=== PATIENT | female | born 1965 | race Caucasian/White ===

== ENCOUNTER 2016-06-01 14:25 | Emergency (ER) | payer MEDICAID ==
[~2016-06-01] VITALS: Ht 177.8 cm; Wt 75.0 kg
[~2016-06-01 14:25] MED LIST: ALBU1AER INH; BENZ100 PO; CELE40TA PO; DOXY100T PO; IBUP800T23 PO; METH500T3 PO; PRED20 PO
[2016-06-01 14:36] VITALS: BP 149/89; PULSE 81; RESP 18; TEMP 98.7; O2SAT 99
[2016-06-01] MEDS ORDERED: ALBUAER3 INH (14:47)
[2016-06-01] MEDS ORDERED: CITA40TA4 PO (14:47)
[2016-06-01] MEDS ORDERED: LIDOCAINE VISCOUS 2% SOLN 15 ML UDC PO ONE (15:15)
[2016-06-01] MEDS ORDERED: FAMOTIDINE 20 MG/2 ML VIAL IV PUSH ONE (15:15)
[2016-06-01] MEDS ORDERED: ALUMINUM/MAGNESIUM/SIMETH 30 ML CUP PO ONE (15:15)
[2016-06-01] MEDS ORDERED: SODIUM CHLORIDE 0.9% FLUSH 5 ML FLUSH IVF PRN (15:15)
[2016-06-01] MEDS ORDERED: ONDANSETRON HCL 4 MG/2 ML VIAL IVP ONE (15:15)
--- NOTE | 2016-06-01 15:18 | PD ---
HPI Chief Complaint: Pain: Acute or Chronic Time Seen by Provider: 14:51 Travel History International Travel<30 days: No Contact w/Intl Traveler<30days: No Traveled to known affect area: No History of Present Illness HPI Patient is a 50-year-old female who presents to emergency room with complaints of abdominal pain. Patient reports that for the past few months, she has had pain to her upper abdomen and ribs. Patient reports that over the past few days , she has been having increased pain to her upper abdomen - reports that the pain radiates to her back and down her legs. Reports that pain is has gotten progressively worse over the past few days. Reports that she did have ribs for dinner last night which "made everything worse." Reports that she has been feeling nauseous and has been vomiting, reports that she vomited some streaks of blood yesterday. Patient denies any diarrhea. Patient reports that she does drink alcohol, does not drink alcohol daily. Patient denies chest pain or shortness of breath. She reports that she was evaluated in this emergency room 2 months ago for similar symptoms and was told that she had a rib contusion and was subsequently discharged to home. Patient denies fevers or chills. Patient with no recent travels. PFSH Past Medical History Anxiety: Yes Depression: Yes Heart Rhythm Problems: Yes ("sometimes feels like butterfly in my chest") Cardiovascular Problems: Yes High Cholesterol: No COPD: Yes Diabetes: No Diminished Hearing: No Musculoskeletal: Yes (rsd) Respiratory: Yes Immunizations Current: Yes Tetanus Vaccination: < 5 Years Influenza Vaccination: No ?: Not Past Surgical History Abdominal Surgery: Yes (csection) Gynecologic Surgery: Yes (part hyst ) Hysterectomy: Yes (PARTIAL) Social History Alcohol Use: Yes Tobacco Use: Yes (05/06 PPD) Substance Use: No Allergies-Medications (Allergen,Severity, Reaction): Coded Allergies: Morphine (Verified Allergy, Severe, Anaphylaxis, 06/01/16) Vicodin (Verified Allergy, Unknown, 06/01/16) Codeine (Verified Adverse Reaction, Severe, 06/01/16) Reported Meds & Prescriptions Reported Meds & Active Scripts Active Reported Citalopram (Citalopram Hydrobromide) 40 Mg Tab 40 Mg PO DAILY Proair Hfa 8.5 GM Inh (Albuterol Sulfate) 90 Mcg/Act Aer 2 Puff INH Q4-6H PRN 108 mcg/actuation Review of Systems General / Constitutional: No: Fever Eyes: No: Visual changes HENT: No: Headaches Cardiovascular: No: Chest Pain or Discomfort, Palpitations, Irregular Rhythm, Tachycardia, Diaphoresis Respiratory: No: Cough, Shortness of Breath Gastrointestinal: Positive: Nausea, Vomiting, Abdominal Pain, Hematemesis, No : Hematochezia, Constipation Genitourinary: No: Dysuria Musculoskeletal: No: Pain Skin: No Rash Neurologic: No: Weakness Psychiatric: No: Depression Endocrine: No: Polydipsia Hematologic/Lymphatic: No: Easy Bruising Physical Exam Narrative GENERAL: No acute distress, nontoxic SKIN: Warm and dry. HEAD: Atraumatic. Normocephalic. ENT: No nasal bleeding or discharge. Mucous membranes pink and moist. NECK: Trachea midline. No JVD. CARDIOVASCULAR: Regular rate and rhythm. No murmur appreciated. RESPIRATORY: No accessory muscle use. Clear to auscultation. Breath sounds equal bilaterally. GASTROINTESTINAL: Abdomen soft, increased tenderness to the upper abdomen with guarding on exam, nondistended. MUSCULOSKELETAL: No obvious deformities. No clubbing. No cyanosis. No edema. NEUROLOGICAL: Awake and alert. No obvious cranial nerve deficits. Motor grossly within normal limits. Normal speech. PSYCHIATRIC: Patient anxious on exam Data Data Last Documented VS Vital Signs Date Time Temp Pulse Resp B/P Pulse Ox O2 Delivery O2 Flow Rate FiO2 06/01/16 15:34 98 06/01/16 14:43 82 18 06/01/16 14:36 98.7 149/89 Orders Complete Blood Count With Diff (06/01/16 15:07) Comprehensive Metabolic Panel (06/01/16 15:07) Lipase (06/01/16 15:07) Prothrombin Time / Inr (Pt) (06/01/16 15:07) Act Partial Throm Time (Ptt) (06/01/16 15:07) Urinalysis - C+S If Indicated (06/01/16 15:07) Iv Access Insert/Monitor (06/01/16 15:07) Oximetry (06/01/16 15:07) Ondansetron Inj (Zofran Inj) (06/01/16 15:15) Sodium Chlor 0.9% 1000 Ml Inj (Ns 1000 M (06/01/16 15:07) Sodium Chloride 0.9% Flush (Ns Flush) (06/01/16 15:15) Chest, Single Ap (06/01/16 15:07) Famotidine Inj (Pepcid Inj) (06/01/16 15:15) Al-Mag Hy-Si 40-40-4 Mg/Ml Liq (Mag-Al P (06/01/16 15:15) Lidocaine 2% Viscous (Xylocaine 2% Visco (06/01/16 15:15) Ed Urine Pregnancytest Poc (06/01/16 15:07) Cta Thor Abd Aorta W Iv C W3d (06/01/16 15:07) Electrocardiogram (06/01/16 ) Iohexol 350 Inj (Omnipaque 350 Inj) (06/01/16 16:52) Hydromorphone Pf Inj (Dilaudid Pf Inj) (06/01/16 17:15) Labs Laboratory Tests Test 06/01/16 06/01/16 15:15 15:23 White Blood Count 9.2 TH/MM3 Red Blood Count 4.84 MIL/MM3 Hemoglobin 15.7 GM/DL Hematocrit 43.7 % Mean Corpuscular Volume 90.3 FL Mean Corpuscular Hemoglobin 32.4 PG Mean Corpuscular Hemoglobin 35.9 % Concent Red Cell Distribution Width 12.1 % Platelet Count 225 TH/MM3 Mean Platelet Volume 9.1 FL Neutrophils (%) (Auto) 65.2 % Lymphocytes (%) (Auto) 25.5 % Monocytes (%) (Auto) 8.1 % Eosinophils (%) (Auto) 0.6 % Basophils (%) (Auto) 0.6 % Neutrophils # (Auto) 6.0 TH/MM3 Lymphocytes # (Auto) 2.3 TH/MM3 Monocytes # (Auto) 0.7 TH/MM3 Eosinophils # (Auto) 0.1 TH/MM3 Basophils # (Auto) 0.1 TH/MM3 CBC Comment DIFF FINAL Differential Comment Prothrombin Time 11.0 SEC Prothromb Time International 1.0 RATIO Ratio Activated Partial 27.4 SEC Thromboplast Time Sodium Level 140 MEQ/L Potassium Level 4.0 MEQ/L Chloride Level 106 MEQ/L Carbon Dioxide Level 26.8 MEQ/L Anion Gap 7 MEQ/L Blood Urea Nitrogen 17 MG/DL Creatinine 0.87 MG/DL Estimat Glomerular Filtration 69 ML/MIN Rate Random Glucose 96 MG/DL Calcium Level 9.0 MG/DL Total Bilirubin 0.4 MG/DL Aspartate Amino Transf 14 U/L (AST/SGOT) Alanine Aminotransferase 21 U/L (ALT/SGPT) Alkaline Phosphatase 76 U/L Total Protein 7.4 GM/DL Albumin 4.0 GM/DL Lipase 101 U/L Urine Color YELLOW Urine Turbidity HAZY Urine pH 5.0 Urine Specific [place] 1.026 Urine Protein NEG mg/dL Urine Glucose (UA) NEG mg/dL Urine Ketones NEG mg/dL Urine Occult Blood MOD Urine Nitrite NEG Urine Bilirubin NEG Urine Urobilinogen LESS THAN 2.0 MG/DL Urine Leukocyte Esterase LARGE Urine RBC 17 /hpf Urine WBC 1 /hpf Urine Squamous Epithelial 8 /hpf Cells Urine Bacteria RARE /hpf Urine Mucus FEW /lpf Microscopic Urinalysis Comment CULT NOT INDICATED MDM Medical Decision Making Medical Screen Exam Complete: Yes Emergency Medical Condition: Yes Interpretation(s) EKG at 1546, NSR at 67bpm, qt/qtc: 418/434, incomplete rbbb, no change from previous ekg (compared to ekg from 01/16/16) Vital Signs Date Time Temp Pulse Resp B/P Pulse Ox O2 Delivery O2 Flow Rate FiO2 06/01/16 14:43 82 18 06/01/16 14:36 98.7 81 18 149/89 99 Laboratory Tests Test 06/01/16 06/01/16 15:15 15:23 White Blood Count 9.2 TH/MM3 (4.0-11.0) Red Blood Count 4.84 MIL/MM3 (4.00-5.30) Hemoglobin 15.7 GM/DL (11.6-15.3) Hematocrit 43.7 % (35.0-46.0) Mean Corpuscular Volume 90.3 FL (80.0-100.0) Mean Corpuscular Hemoglobin 32.4 PG (27.0-34.0) Mean Corpuscular Hemoglobin 35.9 % Concent (32.0-36.0) Red Cell Distribution Width 12.1 % (11.6-17.2) Platelet Count 225 TH/MM3 (150-450) Mean Platelet Volume 9.1 FL (7.0-11.0) Neutrophils (%) (Auto) 65.2 % (16.0-70.0) Lymphocytes (%) (Auto) 25.5 % (9.0-44.0) Monocytes (%) (Auto) 8.1 % (0.0-8.0) Eosinophils (%) (Auto) 0.6 % (0.0-4.0) Basophils (%) (Auto) 0.6 % (0.0-2.0) Neutrophils # (Auto) 6.0 TH/MM3 (1.8-7.7) Lymphocytes # (Auto) 2.3 TH/MM3 (1.0-4.8) Monocytes # (Auto) 0.7 TH/MM3 (0-0.9) Eosinophils # (Auto) 0.1 TH/MM3 (0-0.4) Basophils # (Auto) 0.1 TH/MM3 (0-0.2) CBC Comment DIFF FINAL Differential Comment Prothrombin Time 11.0 SEC (9.8-11.6) Prothromb Time International 1.0 RATIO Ratio Activated Partial 27.4 SEC Thromboplast Time (24.3-30.1) Sodium Level 140 MEQ/L (136-145) Potassium Level 4.0 MEQ/L (3.5-5.1) Chloride Level 106 MEQ/L (98-107) Carbon Dioxide Level 26.8 MEQ/L (21.0-32.0) Anion Gap 7 MEQ/L (5-15) Blood Urea Nitrogen 17 MG/DL (7-18) Creatinine 0.87 MG/DL (0.50-1.00) Estimat Glomerular Filtration 69 ML/MIN (>89) Rate Random Glucose 96 MG/DL (74-106) Calcium Level 9.0 MG/DL (8.5-10.1) Total Bilirubin 0.4 MG/DL (0.2-1.0) Aspartate Amino Transf 14 U/L (15-37) (AST/SGOT) Alanine Aminotransferase 21 U/L (10-53) (ALT/SGPT) Alkaline Phosphatase 76 U/L (45-117) Total Protein 7.4 GM/DL (6.4-8.2) Albumin 4.0 GM/DL (3.4-5.0) Lipase 101 U/L (73-393) Urine Color YELLOW (YELLW/STRAW) Urine Turbidity HAZY (CLEAR) Urine pH 5.0 (5.0-8.5) Urine Specific [place] 1.026 (1.002-1.035) Urine Protein NEG mg/dL (NEG-TRACE) Urine Glucose (UA) NEG mg/dL (NEG) Urine Ketones NEG mg/dL (NEG) Urine Occult Blood MOD (NEG) Urine Nitrite NEG (NEG) Urine Bilirubin NEG (NEG) Urine Urobilinogen LESS THAN 2.0 MG/DL (LESS THAN 2.0) Urine Leukocyte Esterase LARGE (NEG) Urine RBC 17 /hpf (0-3) Urine WBC 1 /hpf (0-5) Urine Squamous Epithelial 8 /hpf (0-5) Cells Urine Bacteria RARE /hpf (NONE) Urine Mucus FEW /lpf (OCC) Microscopic Urinalysis Comment CULT NOT INDICATED Last Impressions Chest X-Ray 06/01/16 1507 Signed Impressions: Service Date/Time: Wednesday, June 01, 2016 15:24 - CONCLUSION: The lungs are clear. Herman Hoang MD Aorta CTA 06/01/16 1507 Signed Impressions: Service Date/Time: Wednesday, June 01, 2016 16:31 - CONCLUSION: 1. No evidence of aortic dissection or aneurysm. 2. 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 Herman Hoang MD Differential Diagnosis Gastric ulcer, duodenal ulcer, pancreatitis, cholecystitis, aortic dissection, PE, bleeding gastric varices, gastroenteritis, electrolyte abnormality Narrative Course Patient is a 50-year-old female who presents to emergency room with complaints of nausea, vomiting, abdominal pain. Patient reports that she has been having symptoms for the past few months, reports that for the past 2-3 days, symptoms have progressed and worsened. Patient reports concern as she vomited streaks of bright red blood after she ate dinner last night. Patient reports severe pain to her upper abdomen but pain worse to her left upper abdomen which radiates her back and down her legs. Patient does admit that eating does make her symptoms "worse." IV ordered for patient. CBC, CMP, Lipase ordered as well a ct of chest/abdomen/ pelvis ordered. Patient reevaluated, patient feeling much better. Reviewed all labs and all studies as well as all incidental findings with patient in detail. Patient with most likely gastritis, discussed need to follow-up with GI as outpatient. Signs and symptoms of when to return to the emergency room reviewed with patient. Diagnosis Primary Impression: Abdominal pain Qualified Code: R10.84 - Generalized abdominal pain Additional Impressions: Gastritis Qualified Code: K29.71 - Gastritis with hemorrhage, unspecified chronicity, unspecified gastritis type UTI (urinary tract infection) Qualified Code: N30.01 - Acute cystitis with hematuria Referrals: Janna Marr MD Patient Instructions: General Instructions, Narcotic given in the ED Departure Forms: Tests/Procedures, Work Release Enter return to work date: Jun 03, 2016 Additional Instructions: Please return to ER as needed Please return to ER if symptoms progress or worsen Please bring your radiology report to doctor's office for follow-up and all studies from today Please follow-up with compounding assistant as soon as possible Med/Other Pt SpecificInfo: Prescription(s) given Scripts Pantoprazole (Protonix)40 Mg Tab40 Mg PO DAILY #30 TAB Ref 0 Prov:Norma Walters DO 06/01/16 Sucralfate (Carafate)1 Gm Tab1 Gm PO TID #90 TAB Ref 0 On empty stomach Prov:Norma Walters DO 06/01/16 Nitrofurantoin Monohydrate Macrocrystals (Macrobid)100 Mg [id number] Mg PO BID 10 Days Ref 0 Prov:Norma Walters DO 06/01/16 Disposition: 01 DISCHARGE HOME Condition: Stable Norma Walters DO Jun 01, 2016 15:18
[2016-06-01] MEDS: SODIUM CHLOR 0.9% 1000 ML INJ 1,000 ML IV SCH ×2 (15:31→15:34)
[2016-06-01 15:34] VITALS: O2SAT 98
[2016-06-01 15:42] LABS: BASOPHIL # 0.1 TH/MM3 (0-0.2); BASOPHIL % 0.6 % (0.0-2.0); EOSINOPHIL # 0.1 TH/MM3 (0-0.4); EOSINOPHIL % 0.6 % (0.0-4.0); HEMATOCRIT 43.7 % (35.0-46.0); HEMO FLAGS DIFF FINAL; LYMPH % 25.5 % (9.0-44.0); LYMPHOCYTE # 2.3 TH/MM3 (1.0-4.8); MEAN CELL VOLUME 90.3 FL (80.0-100.0); MEAN CORPUSCULAR HEMOGLOBIN 32.4 PG (27.0-34.0); MEAN CORPUSCULAR HGB CONC 35.9 % (32.0-36.0); MONO % 8.1 % (0.0-8.0); NEUT % 65.2 % (16.0-70.0); PLATELET COUNT 225 TH/MM3 (150-450); RED BLOOD COUNT 4.84 MIL/MM3 (4.00-5.30); RED CELL DISTRIBUTION WIDTH 12.1 % (11.6-17.2); WHITE BLOOD COUNT 9.2 TH/MM3 (4.0-11.0)
[2016-06-01 15:47] LABS: BACTERIA, URINE RARE /hpf; BLOOD, URINE MOD (NEG); COMMENT (UR) CULT NOT INDICATED; CULTURE IF INDICATED CULT NOT INDICATED; GLUCOSE,URINE NEG (NEG); KETONE, URINE NEG (NEG); MUCUS URINE FEW /lpf (OCC); NITRITE,URINE NEG (NEG); SQUAMOUS EPITHELIAL CELL URINE 8 /hpf (0-5); URINE COLOR YELLOW (YELLW/STRAW)
[2016-06-01 15:54] LABS: APTT (PATIENT) 27.4 SEC (24.3-30.1)
[2016-06-01 16:02] LABS: ANION GAP 7 MEQ/L (5-15); AST (GOT) 14 U/L (15-37); BICARBONATE 26.8 MEQ/L (21.0-32.0); BLOOD UREA NITROGEN 17 MG/DL (7-18); CHLORIDE 106 MEQ/L (98-107); GLOMERULAR FILTRATION RATE 69 ML/MIN (>89); SODIUM (NA) 140 MEQ/L (136-145)
[2016-06-01 16:05] LABS: ALKALINE PHOSPHATASE 76 U/L (45-117); ALT (GPT) 21 U/L (10-53); TOTAL BILIRUBIN ADULT 0.4 MG/DL (0.2-1.0)
--- NOTE | 2016-06-01 16:09 | RADRPT ---
EXAM DATE/TIME: 06/01/2016 15:24 [facility] COMPARISON: CHEST SINGLE AP, January 16, 2016, 12:36. INDICATIONS : Chest pain. MEDICAL HISTORY : None. SURGICAL HISTORY : None. ENCOUNTER: Initial ACUITY: 1 day PAIN SCORE: 6/10 LOCATION: Bilateral chest FINDINGS: A single view of the chest demonstrates the lungs to be symmetrically aerated without evidence of mas s, infiltrate or effusion. The cardiomediastinal contours are unremarkable. Osseous structures are intact. CONCLUSION: The lungs are clear. Herman Hoang MD on June 01, 2016 at 16:07 Board Certified Radiologist. This report was verified electronically.
[2016-06-01] MEDS ORDERED: IOHEXOL 350 MG/ML 10 ML VIAL (for RAD DIAG) IV ONE (16:52)
[2016-06-01] MEDS ORDERED: HYDROmorphone HCL PF 1 MG/ML VIAL IV PUSH ONE (17:15)
--- NOTE | 2016-06-01 18:03 | RADRPT ---
EXAM DATE/TIME: 06/01/2016 16:31 [facility] COMPARISON: No previous studies available for comparison. INDICATIONS : Upper abdomen pain radiating to back. IV CONTRAST: 95 cc Omnipaque 350 (iohexol) IV RADIATION DOSE: 20.73 CTDIvol (mGy) MEDICAL HISTORY : Chronic obstructive pulmonary disease. Cardiovascular disease Hypertension. SURGICAL HISTORY : section. Hysterectomy. ENCOUNTER: Initial ACUITY: 2 days PAIN SCALE: 6/10 LOCATION: Left abdomen/pelvis TECHNIQUE: Volumetric scanning was performed using a multi-row detector CT scanner. The data was post processed with a variety of visualization algorithms including full volume maximum intensity projection, multi -planar sliding thin slab reformation, curved planar reformation, and surface rendering techniques. Using automated exposure control and adjustment of the mA and/or kV according to patient size, radiat ion dose was kept as low as reasonably achievable to obtain optimal diagnostic quality images. FINDINGS: There few scattered diverticula in the sigmoid colon without radiographic evidence of diverticulitis. The uterus is anteverted. LUNGS: There is no consolidation or pneumothorax. No concerning pulmonary nodule is visualized. No pleural fluid is present. MEDIASTINUM: No abnormally enlarged lymph nodes by CT criteria. No axillary or hilar abnormalities are identified. No filling defects in the central pulmonary arteries. ABDOMEN: The liver and spleen are free of focal defects. The gallbladder and pancreas demonstrate no abnormali ty. The adrenal glands are normal. The kidneys demonstrate no evidence of solid renal mass or hydrone phrosis. No free fluid or abdominal masses are identified. No para-aortic adenopathy is seen. PELVIS: No evidence of free fluid or pelvic mass. No abnormally enlarged inguinal or retroperitoneal lymph no traci are present. The bladder is unremarkable. THORACIC AORTA: The thoracic aortic root is normal with normal branching of the great vessels. There is anomalous or igin of the right brachiocephalic artery from the medial aortic arch. There is no evidence of aneury sm or dissection. ABDOMINAL AORTA: The aorta is normal in caliber without aneurysm or dissection. The renal arteries are patent bilater ally. The proximal celiac and superior mesenteric arteries are patent and normal in diameter. PELVIC VESSELS: The internal iliac and external iliac vessels are patent without aneurysm or stenosis. CONCLUSION: 1. No evidence of aortic dissection or aneurysm. 2. 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 Herman Hoang MD on June 01, 2016 at 17:57 Board Certified Radiologist. This report was verified electronically.
[2016-06-01] MEDS ORDERED: NITROFURANTOIN MONOHYD MACROCR 100 MG CAP PO ONE (18:30)
[2016-06-01] MEDS ORDERED: CARA1TAB6 PO (18:31)
[2016-06-01] MEDS ORDERED: PROT40TA PO (18:31)
[2016-06-01] MEDS ORDERED: MACR100C2 PO (18:31)
--- NOTE | 2016-06-02 13:18 | EKG ---
Date Performed: 06/01/2016 Time Performed: 15:46:11 PTAGE: 50 years EKG: Sinus rhythm POSSIBLE LEFT ATRIAL ENLARGEMENT MARKED LEFT AXIS DEVIATION INCOMPLETE RIGHT BUNDLE BRANCH BLOCK MOD ERATE T-WAVE ABNORMALITY, CONSIDER ANTERIOR ISCHEMIA ABNORMAL ECG Compared to prior tracing no signif icant change PREVIOUS TRACING : 01/16/2016 14.55 DOCTOR: Krzysztof Magaña Interpretating Date/Time 06/02/2016 13:14:31
== END 2016-06-01 19:19 | disposition home or self-care (01) ==
LOC: NEPC 14:25
DX: R10.84 Generalized abdominal pain (principal); K29.71 Gastritis, unspecified, with bleeding; N30.01 Acute cystitis with hematuria; R94.31 Abnormal electrocardiogram [ECG] [EKG]; J44.9 Chronic obstructive pulmonary disease, unspecified; F17.200 Nicotine dependence, unspecified, uncomplicated
CPT/HCPCS: 71010; 71275; 74174; 80053; 81001; 83690; 84703; 85025; 85610; 85730; 93005; 96374; 96375; 99284; J1170; J2405; J7030; Q9967

== ENCOUNTER 2017-02-10 08:39 | Emergency (ER) | payer OTHER ==
[~2017-02-10] VITALS: Ht 175.3 cm; Wt 75.0 kg
[~2017-02-10 08:39] MED LIST changes: -ALBU1AER INH; +ALBUAER3 INH; -BENZ100 PO; -CELE40TA PO; +CITA40TA4 PO; -DOXY100T PO; +GABA300C5 PO; -IBUP800T23 PO; -METH500T3 PO; -PRED20 PO
[2017-02-10 08:42] VITALS: BP 139/84; PULSE 73; RESP 20; TEMP 98.4; O2SAT 98
--- NOTE | 2017-02-10 09:14 | PD ---
HPI Chief Complaint: Cold / Flu Symptoms Time Seen by Provider: 08:56 Travel History International Travel<30 days: No Contact w/Intl Traveler<30days: No Traveled to known affect area: No History of Present Illness HPI 51-year-old female,with history of COPD, presents to the emergency Department with complaint of nasal congestion, cough, wheezing, shortness of breath, fever 2 days. MAXIMUM TEMPERATURE 102.0 yesterday. Denies ear pain, sore throat. Denies chest pain, abdominal pain, vomiting. Says she has a sharp shooting pain in her left upper back when she coughs. Ran out of her albuterol inhaler a few days ago and has not had it for current exacerbation of symptoms. Took NyQuil last night for symptom management. Symptoms are moderate in severity. No known relieving or aggravating factors. Has no other medical complaints. Allergies to acetaminophen, codeine, hydrocodone, morphine. No other modifying factors or associated signs and symptoms. PFSH Past Medical History Anxiety: Yes Depression: Yes Heart Rhythm Problems: Yes ("sometimes feels like butterfly in my chest") Cardiovascular Problems: Yes High Cholesterol: No COPD: Yes Diabetes: No Diminished Hearing: No Musculoskeletal: Yes (rsd) Respiratory: Yes (COPD) Immunizations Current: Yes ?: Not Past Surgical History Abdominal Surgery: Yes (csection) Gynecologic Surgery: Yes (part hyst ) Hysterectomy: Yes (PARTIAL) Social History Alcohol Use: Yes Tobacco Use: Yes (1/2 PPD) Substance Use: No Allergies-Medications (Allergen,Severity, Reaction): Coded Allergies: morphine (Unverified Allergy, Severe, Anaphylaxis, 12/18/16) acetaminophen (Unverified Allergy, Unknown, 12/18/16) hydrocodone (Unverified Allergy, Unknown, 12/18/16) codeine (Unverified Adverse Reaction, Severe, 12/18/16) Reported Meds & Prescriptions Reported Meds & Active Scripts Active Deltasone (Prednisone) 20 Mg Tab 40 Mg PO DAILY 4 Days start 02/11/2017 Proair Hfa 8.5 GM Inh (Albuterol Sulfate) 90 Mcg/Act Aer 2 Puff INH Q4-6H PRN 108 mcg/actuation Gabapentin 300 Mg Cap 300 Mg PO HS Reported Citalopram (Citalopram Hydrobromide) 40 Mg Tab 40 Mg PO DAILY Proair Hfa 8.5 GM Inh (Albuterol Sulfate) 90 Mcg/Act Aer 2 Puff INH Q4-6H PRN 108 mcg/actuation Review of Systems Except as stated in HPI: all other systems reviewed are Neg Physical Exam Narrative GENERAL: Well-nourished, well-developed female patient, in no acute distress; afebrile, nontoxic-appearing SKIN: Warm and dry. HEAD: Atraumatic. Normocephalic. EYES: Pupils equal and round. No scleral icterus. No injection or drainage. ENT: Mucosa pink and moist. No erythema or exudates. No uvular edema. No uvular , palatal, or tonsillar deviation. Airway patent. Nares without nasal blood, purulent drainage or septal hematoma. EARS: Bilateral pinnae and external canals appear within normal limits. Bilateral tympanic membranes without erythema, dullness or perforation. NECK: Trachea midline. No lymphadenopathy. CARDIOVASCULAR: Regular rate and rhythm. No murmur appreciated. RESPIRATORY: No accessory muscle use. Lungs with Wheezing throughout to auscultation. Breath sounds equal bilaterally. No retractions or tachypnea. No Audible wheezing noted. Dry consistent cough. GASTROINTESTINAL: Abdomen soft, non-tender, nondistended. Hepatic and splenic margins not palpable. Bowel sounds are active 4 quadrants. MUSCULOSKELETAL: No obvious deformities. No clubbing. No cyanosis. No edema. NEUROLOGICAL: Awake and alert. Oriented 3. No obvious cranial nerve deficits. Motor grossly within normal limits. Normal speech. Moves all extremities. 5/5 strength to all extremities. PSYCHIATRIC: Appropriate mood and affect; insight and judgment normal. Data Data Last Documented VS Vital Signs Date Time Temp Pulse Resp B/P (MAP) Pulse Ox O2 Delivery O2 Flow Rate FiO2 02/10/17 09:35 98 21 02/10/17 08:42 98.4 73 20 139/84 (102) Orders Orders Chest, Single Ap (02/10/17 09:13) Prednisone (Deltasone) (02/10/17 09:15) Albuterol-Ipratropium Neb (Duoneb Neb) (02/10/17 09:15) Influenzae A/B Antigen (02/10/17 09:13) Ibuprofen (Motrin) (02/10/17 09:15) MDM Medical Decision Making Medical Screen Exam Complete: Yes Emergency Medical Condition: Yes Medical Record Reviewed: Yes Differential Diagnosis Viral illness, COPD exacerbation, pneumonia, influenza Narrative Course 51-year-old female with history of COPD with suspected COPD exacerbation and cold/flu symptoms. She is afebrile and nontoxic appearing. She is in no acute distress and oxygen saturation is 98% on room air. DuoNeb, Deltasone, chest x- ray, influenza, ibuprofen ordered. 0954: Chest x-ray with no acute findings. On reexamination after the breathing treatment the patient reports improvement in cough and denies chest pain or shortness of breath. Lungs sounds are clear and equal throughout with improved lung sounds. 1022: Influenza negative. Suspecting viral illness with COPD exacerbation. Discussed viral illness and symptomatic management. Pro-air inhaler, Deltasone prescribed for home. Instructed patient to follow up with primary care provider. Patient verbalizes understanding and agreement with treatment plan. Patient is medically cleared and stable for discharge. Discussed reasons to return to the emergency department. Patient agrees with treatment plan. The patients vital signs are stable and the patient is stable for outpatient follow- up and treatment. Patient discharged home, stable and in no acute distress. Diagnosis Primary Impression: COPD exacerbation Additional Impression: Viral illness Referrals: Primary Care Physician Patient Instructions: General Instructions Additional Instructions: Use Albuterol inhaler as prescribed Take oral steroids as prescribed and complete full course [id number] decongestants or antihistamines as directed and as needed for symptom management Drink plenty of fluids to prevent dehydration Use hot air humidifier to decrease cough exacerbation Turn off ceiling fans and sleep with head of bed elevated Avoid triggers such as second hand smoke, dust, known allergens Follow-up with your primary care provider Return to the emergency department immediately with worsening of symptoms Med/Other Pt SpecificInfo: Prescription(s) given Scripts Prednisone (Deltasone) 20 Mg Tab 40 MG PO DAILY for 4 Days, #8 TAB 0 Refills start 02/11/2017 Prov: Lety Melara 02/10/17 Albuterol 8.5 GM Inh (Proair Hfa 8.5 GM Inh) 90 Mcg/Act Aer 2 PUFF INH Q4-6H Y for SOB/WHEEZING, #1 INHALER 0 Refills 108 mcg/actuation Prov: Lety Melara 02/10/17 Disposition: 01 DISCHARGE HOME Condition: Stable Lety Melara Feb 10, 2017 09:14
[2017-02-10] MEDS ORDERED: RESP: ALBUTEROL 2.5 MG/IPRATROPIUM 0.5 MG NEB (SCH) INH ONE (09:15)
[2017-02-10] MEDS ORDERED: predniSONE 20 MG TAB PO ONE (09:15)
[2017-02-10] MEDS ORDERED: IBUPROFEN 800 MG TAB PO ONE (09:15)
[2017-02-10 09:35] VITALS: O2SAT 98
[2017-02-10] MEDS ORDERED: PRED-503 PO (09:40)
[2017-02-10] MEDS ORDERED: ALBUAER3 INH (09:40)
--- NOTE | 2017-02-10 09:47 | RADRPT ---
EXAM DATE/TIME: 02/10/2017 09:35 [facility] COMPARISON: CTA THORACIC ABDOMINAL AORTA W 3D RECON, June 01, 2016, 16:31. CHEST SINGLE AP, June 01, 2016, 15:24. INDICATIONS : Cough., short of breath. MEDICAL HISTORY : Chronic obstructive pulmonary disease. SURGICAL HISTORY : None. ENCOUNTER: Initial ACUITY: 1 day PAIN SCORE: 8/10 LOCATION: Left chest FINDINGS: No new focal pleural or parenchymal opacities. Stable linear per intimal opacities in the left lower lung zone consistent with scarring. Cardiomediastinal contours are within normal limits. The thorax i s intact. CONCLUSION: 1. No acute cardiopulmonary disease. Jonathon Kelly MD on February 10, 2017 at 9:44 Board Certified Radiologist. This report was verified electronically.
[2017-02-12] MEDS ORDERED: FLUT1SPR5 EACH NARE (13:03)
[2017-02-12] MEDS ORDERED: MEDR4PAK PO (13:03)
[2017-02-12] MEDS ORDERED: AUGM875T3 PO (13:03)
[2017-02-12] MEDS ORDERED: BENZ100 PO (13:03)
== END 2017-02-10 10:37 | disposition home or self-care (01) ==
LOC: NEPD 08:39
DX: J44.1 Chronic obstructive pulmonary disease with (acute) exacerbation (principal); B34.9 Viral infection, unspecified; R50.9 Fever, unspecified; Z72.0 Tobacco use
CPT/HCPCS: 71010; 87804; 94664; 99284; J7512

== ENCOUNTER 2017-03-03 10:45 | Emergency (ER) | payer OTHER ==
[~2017-03-03] VITALS: Ht 175.3 cm; Wt 76.0 kg
[~2017-03-03 10:45] MED LIST changes: +AZIT250T3 PO; +FLUT1SPR5 EACH NARE
[2017-03-03 10:47] VITALS: BP 142/78; PULSE 80; RESP 13; TEMP 98.6; O2SAT 99
[2017-03-03] MEDS ORDERED: ORPHENADRINE INJ 60 MG/2 ML AMP IM ONE (12:00)
[2017-03-03] MEDS ORDERED: KETOROLAC TROMETHAMINE 60 MG/2 ML (IM) VIAL IM ONE (12:00)
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
[2017-03-03] MEDS ORDERED: IBUP-232 PO (12:11)
[2017-03-03] MEDS ORDERED: CYCL5TAB PO (12:11)
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
== END 2017-03-03 12:42 | disposition home or self-care (01) ==
LOC: NEPD 10:45
DX: M25.512 Pain in left shoulder (principal); R51 Headache; S16.1XXA Strain of muscle, fascia and tendon at neck level, initial encounter; R20.0 Anesthesia of skin; R20.2 Paresthesia of skin; F41.9 Anxiety disorder, unspecified; F32.9 Major depressive disorder, single episode, unspecified; J44.9 Chronic obstructive pulmonary disease, unspecified; V43.52XA Car driver injured in collision with other type car in traffic accident, initial encounter
CPT/HCPCS: 96372; 99284; J1885; J2360

== ENCOUNTER 2017-07-12 14:12 | Emergency (ER) | payer OTHER ==
[~2017-07-12] VITALS: Ht 175.3 cm; Wt 75.0 kg
[~2017-07-12 14:12] MED LIST changes: -AZIT250T3 PO; +CYCL5TAB PO; +TRAM50TA PO
[2017-07-12] MEDS ORDERED: IOHEXOL 350 MG/ML 10 ML VIAL (for RAD DIAG) IVCONTRAST ONE (14:13)
[2017-07-12 15:09] VITALS: BP 141/85; PULSE 78; RESP 18; TEMP 98.5; O2SAT 97
[2017-07-12 16:07] LABS: AUTOMATED NEUTROPHIL # 6.9 TH/MM3 (1.8-7.7); BASOPHIL # 0.1 TH/MM3 (0-0.2); BASOPHIL % 0.6 % (0.0-2.0); EOSINOPHIL # 0.1 TH/MM3 (0-0.4); EOSINOPHIL % 0.6 % (0.0-4.0); HEMOGLOBIN 15.2 GM/DL (11.6-15.3); LYMPHOCYTE # 2.9 TH/MM3 (1.0-4.8); MEAN CELL VOLUME 92.5 FL (80.0-100.0); MEAN CORPUSCULAR HEMOGLOBIN 32.7 PG (27.0-34.0); MEAN CORPUSCULAR HGB CONC 35.3 % (32.0-36.0); MEAN PLATELET VOLUME 8.3 FL (7.0-11.0); MONO % 7.2 % (0.0-8.0); MONOCYTE # 0.8 TH/MM3 (0-0.9); NEUT % 64.6 % (16.0-70.0); PLATELET COUNT 242 TH/MM3 (150-450); RED BLOOD COUNT 4.65 MIL/MM3 (4.00-5.30); RED CELL DISTRIBUTION WIDTH 12.5 % (11.6-17.2); WHITE BLOOD COUNT 10.7 TH/MM3 (4.0-11.0)
[2017-07-12 16:12] LABS: BILIRUBIN, URINE NEG (NEG); BLOOD, URINE MOD (NEG); GLUCOSE,URINE NEG (NEG); KETONE, URINE 10 mg/dL (NEG); MUCUS URINE FEW /lpf (OCC); NITRITE,URINE NEG (NEG); SQUAMOUS EPITHELIAL CELL URINE 10 /hpf (0-5); URINE COLOR YELLOW (YELLW/STRAW); URINE LEUKOCYTE ESTERASE NEG (NEG)
[2017-07-12 16:15] LABS: ALBUMIN 4.2 GM/DL (3.4-5.0); ALT (GPT) 29 U/L (10-53); AST (GOT) 23 U/L (15-37); BICARBONATE 28.5 MEQ/L (21.0-32.0); BLOOD UREA NITROGEN 9 MG/DL (7-18); CHLORIDE 103 MEQ/L (98-107); CREATININE 0.78 MG/DL (0.50-1.00); GLOMERULAR FILTRATION RATE 78 ML/MIN (>89); GLUCOSE,RANDOM 83 MG/DL (74-106); SODIUM (NA) 136 MEQ/L (136-145)
[2017-07-12 16:17] LABS: ALKALINE PHOSPHATASE 85 U/L (45-117); TOTAL BILIRUBIN ADULT 0.5 MG/DL (0.2-1.0); TOTAL PROTEIN 7.7 GM/DL (6.4-8.2)
--- NOTE | 2017-07-12 16:55 | PD ---
HPI Chief Complaint: Abdominal Pain Time Seen by Provider: 16:17 Travel History International Travel<30 days: No Contact w/Intl Traveler<30days: No Traveled to known affect area: No History of Present Illness HPI This patient complains of abdominal pain. Location is left upper quadrant. Duration is 3 days. She also complains of vomiting and diarrhea. Denies fever. Symptoms severity is moderate. No alleviating factors. No exacerbating factors. PFSH Past Medical History Anxiety: Yes Depression: Yes Heart Rhythm Problems: Yes ("sometimes feels like butterfly in my chest") Cardiovascular Problems: Yes High Cholesterol: No COPD: Yes Diabetes: No Diminished Hearing: No Musculoskeletal: Yes (rsd) Respiratory: Yes (COPD) Immunizations Current: Yes ?: Not LMP: "5 YEARS AGO" Past Surgical History Abdominal Surgery: Yes (csection) Section: Yes Gynecologic Surgery: Yes (part hyst ) Hysterectomy: Yes (PARTIAL) Social History Alcohol Use: Yes ("SOCIALLY") Tobacco Use: Yes (1/2 PPD) Substance Use: No Allergies-Medications (Allergen,Severity, Reaction): Coded Allergies: morphine (Unverified Allergy, Severe, Anaphylaxis, 07/12/17) acetaminophen (Unverified Allergy, Unknown, 07/12/17) hydrocodone (Unverified Allergy, Unknown, 07/12/17) codeine (Unverified Adverse Reaction, Severe, 07/12/17) Reported Meds & Prescriptions Reported Meds & Active Scripts Active Reported Citalopram (Citalopram Hydrobromide) 40 Mg Tab 40 Mg PO DAILY Review of Systems General / Constitutional: No: Fever Eyes: No: Visual changes HENT: No: Headaches Cardiovascular: No: Chest Pain or Discomfort Respiratory: No: Shortness of Breath Gastrointestinal: Positive: Nausea, Vomiting, Diarrhea, Abdominal Pain Genitourinary: No: Dysuria Musculoskeletal: No: Pain Skin: No Rash Neurologic: No: Weakness Psychiatric: No: Depression Endocrine: No: Polydipsia Hematologic/Lymphatic: No: Easy Bruising Physical Exam Narrative GENERAL: Well-nourished, well-developed patient in no apparent distress. SKIN: Focused skin assessment reveals no rash and nodules. Skin is Warm and dry. HEAD: Atraumatic. Normocephalic. EYES: Pupils equal and round. No scleral icterus. No injection or drainage. ENT: No nasal bleeding or discharge. Mucous membranes pink and moist. NECK: Trachea midline. No JVD. CARDIOVASCULAR: Regular rate and rhythm. No murmur appreciated. RESPIRATORY: No accessory muscle use. Clear to auscultation. Breath sounds equal bilaterally. GASTROINTESTINAL: Abdomen soft, some left upper quadrant tenderness without rebound or guarding. Hepatic and splenic margins not palpable. MUSCULOSKELETAL: No obvious deformities. No clubbing. No cyanosis. No edema. NEUROLOGICAL: Awake and alert. No obvious cranial nerve deficits. Motor grossly within normal limits. Normal speech. PSYCHIATRIC: Appropriate mood and affect; insight and judgment normal. Data Data Last Documented VS Vital Signs Date Time Temp Pulse Resp B/P (MAP) Pulse Ox O2 Delivery O2 Flow Rate FiO2 07/12/17 15:56 18 07/12/17 15:09 98.5 78 141/85 (103) 97 Orders Orders Complete Blood Count With Diff (07/12/17 15:17) Comprehensive Metabolic Panel (07/12/17 15:17) Urinalysis - C+S If Indicated (07/12/17 15:17) Lipase (07/12/17 15:17) Ondansetron Inj (Zofran Inj) (07/12/17 17:00) Labs Laboratory Tests Test 07/12/17 15:39 07/12/17 15:45 Urine Color YELLOW Urine Turbidity HAZY Urine pH 5.0 Urine Specific [place] 1.027 Urine Protein TRACE mg/dL Urine Glucose (UA) NEG mg/dL Urine Ketones 10 mg/dL Urine Occult Blood MOD Urine Nitrite NEG Urine Bilirubin NEG Urine Urobilinogen 2.0 MG/DL Urine Leukocyte Esterase NEG Urine RBC 31 /hpf Urine WBC 2 /hpf Urine Squamous Epithelial Cells 10 /hpf Urine Mucus FEW /lpf Microscopic Urinalysis Comment CULT NOT INDICATED White Blood Count 10.7 TH/MM3 Red Blood Count 4.65 MIL/MM3 Hemoglobin 15.2 GM/DL Hematocrit 43.0 % Mean Corpuscular Volume 92.5 FL Mean Corpuscular Hemoglobin 32.7 PG Mean Corpuscular Hemoglobin Concent 35.3 % Red Cell Distribution Width 12.5 % Platelet Count 242 TH/MM3 Mean Platelet Volume 8.3 FL Neutrophils (%) (Auto) 64.6 % Lymphocytes (%) (Auto) 27.0 % Monocytes (%) (Auto) 7.2 % Eosinophils (%) (Auto) 0.6 % Basophils (%) (Auto) 0.6 % Neutrophils # (Auto) 6.9 TH/MM3 Lymphocytes # (Auto) 2.9 TH/MM3 Monocytes # (Auto) 0.8 TH/MM3 Eosinophils # (Auto) 0.1 TH/MM3 Basophils # (Auto) 0.1 TH/MM3 CBC Comment AUTO DIFF Blood Urea Nitrogen 9 MG/DL Creatinine 0.78 MG/DL Random Glucose 83 MG/DL Total Protein 7.7 GM/DL Albumin 4.2 GM/DL Calcium Level 9.0 MG/DL Alkaline Phosphatase 85 U/L Aspartate Amino Transf (AST/SGOT) 23 U/L Alanine Aminotransferase (ALT/SGPT) 29 U/L Total Bilirubin 0.5 MG/DL Sodium Level 136 MEQ/L Potassium Level 4.4 MEQ/L Chloride Level 103 MEQ/L Carbon Dioxide Level 28.5 MEQ/L Anion Gap 5 MEQ/L Estimat Glomerular Filtration Rate 78 ML/MIN Lipase 83 U/L MDM Medical Decision Making Medical Screen Exam Complete: Yes Emergency Medical Condition: Yes Medical Record Reviewed: Yes Differential Diagnosis Kidney stone, colitis, ileus, pancreatitis Narrative Course I have reviewed the patient's electronic medical record. Patient's lab studies are completely normal I gave her dose of IV Zofran and IV Toradol for symptom relief Ordered CT of abdomen and pelvis to ensure no emergent condition existing. She does have hematuria without infection the urine so this could be stone disease. Case checked out to the evening physician to assist with disposition Diagnosis Primary Impression: Abdominal pain Qualified Codes: R10.12 - Left upper quadrant pain Josiah Simpson MD Jul 12, 2017 16:55
[2017-07-12] MEDS ORDERED: ONDANSETRON HCL 4 MG/2 ML VIAL IV ONE (17:00)
[2017-07-12] MEDS ORDERED: KETOROLAC TROMETHAMINE 30 MG/ML (IVP) VIAL IVP ONE (17:00)
[2017-07-12] MEDS ORDERED: DICYCLOMINE HCL 20 MG/2 ML VIAL IM ONE (18:30)
--- NOTE | 2017-07-12 18:47 | RADRPT ---
EXAM DATE/TIME: 07/12/2017 18:23 [place] COMPARISON: No previous studies available for comparison. INDICATIONS : Left upper quadrant pain, nausea and vomiting. IV CONTRAST: 81 cc Omnipaque 350 (iohexol) IV ORAL CONTRAST: No oral contrast ingested. RADIATION DOSE: 7.9 CTDIvol (mGy) MEDICAL HISTORY : Cardiovascular disease. Hypertension. SURGICAL HISTORY : Hysterectomy. ENCOUNTER: Initial ACUITY: 2 days PAIN SCALE: 6/10 LOCATION: Left upper quadrant TECHNIQUE: Volumetric scanning of the abdomen and pelvis was performed. Using automated exposure control and ad justment of the mA and/or kV according to patient size, radiation dose was kept as low as reasonably achievable to obtain optimal diagnostic quality images. DICOM format image data is available electro nically for review and comparison. FINDINGS: There is atelectasis and scarring at the lung bases. No acute findings in the liver, spleen, adrenals, kidneys or pancreas. No calcified gallstones or jennifer iary ductal dilatation. There is no free fluid. No bowel obstruction. No adenopathy. No acute bony abnormalities. CONCLUSION: 1. No acute findings identified within the abdomen and pelvis. No renal calculi or obstructive uropat hy. Postoperative hysterectomy. Trevin López MD on July 12, 2017 at 18:42 Board Certified Radiologist. This report was verified electronically.
[2017-07-12] MEDS ORDERED: DICY10 PO (19:25)
--- NOTE | 2017-07-12 19:25 | PD ---
Physical Exam Narrative Patient was seen by ED physician and signed out to me. Patient with history of recurrent abdominal pain for the past year. Has been seen by personal physician. Awaiting GI consultation. Data Data Last Documented VS Vital Signs Date Time Temp Pulse Resp B/P (MAP) Pulse Ox O2 Delivery O2 Flow Rate FiO2 07/12/17 15:56 18 07/12/17 15:09 98.5 78 141/85 (103) 97 Orders Orders Complete Blood Count With Diff (07/12/17 15:17) Comprehensive Metabolic Panel (07/12/17 15:17) Urinalysis - C+S If Indicated (07/12/17 15:17) Lipase (07/12/17 15:17) Ondansetron Inj (Zofran Inj) (07/12/17 17:00) Ketorolac Inj (Toradol Inj) (07/12/17 17:00) Ct Abd/Pel W Iv Contrast(Rout) (07/12/17 ) Dicyclomine Inj (Bentyl Inj) (07/12/17 18:30) Iohexol 350 Inj (Omnipaque 350 Inj) (07/12/17 14:13) Labs Laboratory Tests Test 07/12/17 15:39 07/12/17 15:45 Urine Color YELLOW Urine Turbidity HAZY Urine pH 5.0 Urine Specific [place] 1.027 Urine Protein TRACE mg/dL Urine Glucose (UA) NEG mg/dL Urine Ketones 10 mg/dL Urine Occult Blood MOD Urine Nitrite NEG Urine Bilirubin NEG Urine Urobilinogen 2.0 MG/DL Urine Leukocyte Esterase NEG Urine RBC 31 /hpf Urine WBC 2 /hpf Urine Squamous Epithelial Cells 10 /hpf Urine Mucus FEW /lpf Microscopic Urinalysis Comment CULT NOT INDICATED White Blood Count 10.7 TH/MM3 Red Blood Count 4.65 MIL/MM3 Hemoglobin 15.2 GM/DL Hematocrit 43.0 % Mean Corpuscular Volume 92.5 FL Mean Corpuscular Hemoglobin 32.7 PG Mean Corpuscular Hemoglobin Concent 35.3 % Red Cell Distribution Width 12.5 % Platelet Count 242 TH/MM3 Mean Platelet Volume 8.3 FL Neutrophils (%) (Auto) 64.6 % Lymphocytes (%) (Auto) 27.0 % Monocytes (%) (Auto) 7.2 % Eosinophils (%) (Auto) 0.6 % Basophils (%) (Auto) 0.6 % Neutrophils # (Auto) 6.9 TH/MM3 Lymphocytes # (Auto) 2.9 TH/MM3 Monocytes # (Auto) 0.8 TH/MM3 Eosinophils # (Auto) 0.1 TH/MM3 Basophils # (Auto) 0.1 TH/MM3 CBC Comment AUTO DIFF Differential Comment AUTO DIFF CONFIRMED Blood Urea Nitrogen 9 MG/DL Creatinine 0.78 MG/DL Random Glucose 83 MG/DL Total Protein 7.7 GM/DL Albumin 4.2 GM/DL Calcium Level 9.0 MG/DL Alkaline Phosphatase 85 U/L Aspartate Amino Transf (AST/SGOT) 23 U/L Alanine Aminotransferase (ALT/SGPT) 29 U/L Total Bilirubin 0.5 MG/DL Sodium Level 136 MEQ/L Potassium Level 4.4 MEQ/L Chloride Level 103 MEQ/L Carbon Dioxide Level 28.5 MEQ/L Anion Gap 5 MEQ/L Estimat Glomerular Filtration Rate 78 ML/MIN Lipase 83 U/L MDM Supervised Visit with FROYLAN: No Interpretation(s) Last Impressions Abdomen/Pelvis CT 07/12/17 0000 Signed Impressions: Service Date/Time: Wednesday, July 12, 2017 18:23 - CONCLUSION: 1. No acute findings identified within the abdomen and pelvis. No renal calculi or obstructive uropathy. Postoperative hysterectomy. Trevin López MD 1923 PM. CBC within normal limits. CMP within normal limits. UA positive for RBC. Diagnosis Primary Impression: Abdominal pain Qualified Codes: R10.12 - Left upper quadrant pain Patient Instructions: General Instructions Med/Other Pt SpecificInfo: Prescription(s) given Scripts Dicyclomine (Bentyl) 10 Mg Cap 10 MG PO TID Y for Bowel Management, #30 CAP 0 Refills Prov: Rolan Matute MD 07/12/17 Disposition: 01 DISCHARGE HOME Condition: Stable Rolan Matute MD Jul 12, 2017 19:25
== END 2017-07-12 19:41 | disposition home or self-care (01) ==
LOC: NEPD 14:12
DX: R10.12 Left upper quadrant pain (principal); R11.2 Nausea with vomiting, unspecified; R19.7 Diarrhea, unspecified; F41.9 Anxiety disorder, unspecified; J44.9 Chronic obstructive pulmonary disease, unspecified; G90.50 Complex regional pain syndrome I, unspecified; F32.9 Major depressive disorder, single episode, unspecified; F17.200 Nicotine dependence, unspecified, uncomplicated; Z79.899 Other long term (current) drug therapy
CPT/HCPCS: 74177; 80053; 81001; 83690; 85025; 96372; 96374; 96375; 99284; J0500; J1885; J2405; Q9967